=== PATIENT | male | born 1975 | race Two or more races ===

== ENCOUNTER 2018-01-10 12:10 | Emergency (ER) | payer OTHER ==
--- NOTE | 2018-01-10 12:40 | EDPHY ---
H & P Stated Complaint: yesterday noon eyes red/then developed l facial paralysis Time Seen by Provider: 01/10/18 12:25 HPI/ROS: CHIEF COMPLAINT: Left facial droop times 30 hr HISTORY OF PRESENT ILLNESS: 42 year male otherwise healthy complaining of left facial droop since yesterday morning. No trauma. No headache. No visual disturbance beyond inability to close left eyelid. No neck pain or manipulation history. No gait instability. No slurred speech. No upper extremity weakness. PRIMARY CARE PROVIDER: Rufus REVIEW OF SYSTEMS: A ten point review of systems was performed and is negative with the exception of the items mentioned in the HPI PAST MEDICAL & SURGICAL HISTORY: No pertinent medical or surgical history SOCIAL HISTORY: Nonsmoker PHYSICAL EXAM (Prior to examination, patient consented to physical exam, hands were washed and my usual and customary physical exam procedures followed) 1) GENERAL: Well-developed, well-nourished, alert and oriented. Appears to be in no acute distress. 2) HEAD: Normocephalic, atraumatic 3) HEENT: Pupils equal, round, reactive to light bilaterally. Sclera anicteric. No injection. The forehead is involved as well. Left eyebrow sagging, inability to close the left eye, disappearance of the left nasolabial fold, and drooping at the left corner of the mouth, which is drawn to the right side Asymmetrical faces, noted left facial droop. Inability to close left eyelid fully. Nasopharynx, oropharynx, clear, no lesions. Ears bilaterally with normal tympanic membranes. No facial or neck or scalp lesions or vesicles. 4) NECK: Full range of motion, no meningeal signs. 5) LUNGS: Clear auscultation bilaterally, no wheezes, no rhonchi, no retractions. 6) HEART: Regular rate and rhythm, no murmur, no heave, no gallop. 7) ABDOMEN: No guarding, no rebound, no focal tenderness, negative McBurney's, negative Rogel's, negative Rovsing's, negative peritoneal sign, 8) MUSCULOSKELETAL: Moving all extremities, no focal areas of tenderness, no obvious trauma. No peripheral edema or discoloration. 9) BACK: No CVA tenderness, no midline vertebral tenderness, no fluctuance, no step-off, no obvious trauma, no visual or palpable abnormality. 10) SKIN: No rash, no petechiae. 11) Psychiatric: Patient is oriented X 3, there is no agitation. 12) NEURO: Awake, alert, and oriented to person, place and time. Answers questions appropriately. There were no obvious focal neurologic abnormalities. No cerebellar dysfunction. Normal steady gait. Upper and lower extremities bilaterally with strength 5 / 5, reflexes 2+. DIFFERENTIAL DIAGNOSIS: In no particular include but limited to Solis's palsy, central lesion, CVA - Personal History Current Tetanus/Diphtheria Vaccine: Unsure - Medical/Surgical History Hx Asthma: No Hx Chronic Respiratory Disease: No Hx Diabetes: No Hx Cardiac Disease: No Hx Renal Disease: No Hx Cirrhosis: No Hx Alcoholism: No Hx HIV/AIDS: No Hx Splenectomy or Spleen Trauma: No Other PMH: none reported - Social History Smoking Status: Never smoked Constitutional: Initial Vital Signs Temperature (C) 37.1 C 01/10/18 12:17 Heart Rate 88 01/10/18 12:17 Respiratory Rate 18 01/10/18 12:17 Blood Pressure 190/94 H 01/10/18 12:17 O2 Sat (%) 96 01/10/18 12:17 O2 Delivery Mode Room Air Allergies/Adverse Reactions: No Known Allergies Allergy (Verified 01/10/18 12:17) Home Medications: Medication Instructions Recorded Polyvinyl Alcohol [Artificial 3 drops OP QID #1 btl 01/10/18 Tears] Valacyclovir HCl [Valtrex] 1,000 mg PO TID #21 tab 01/10/18 predniSONE 60 mg PO DAILY #21 tab 01/10/18 Medical Decision Making ED Course/Re-evaluation: Doubt CVA, doubt central lesion. 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 Will initiate glucocorticoid and antiviral therapy, artificial tears. Recommend follow up at [place] this week (today is Thursday). Given usual customary CVA precautions instructions. He feels comfortable being discharged. Care of patient under supervision of [secondary] supervising physician Dr Peacock with whom I discussed case. Departure - Departure Disposition: Home, Routine, Self-Care Clinical Impression: Solis's palsy Condition: Good Instructions: Solis Palsy (ED) Additional Instructions: Return to the ER immediately if you develop problems walking, problem speaking or any other symptoms that concern you. Referrals: [facility] ,. [[facility]m Groups for Call Sched] - 1-2 days without fail Prescriptions: Polyvinyl Alcohol [Artificial Tears] 3 drops OP QID #1 btl predniSONE 60 mg PO DAILY #21 tab Valacyclovir HCl [Valtrex] 1,000 mg PO TID #21 tab Print Language: Divehi
[2018-01-10 13:04] VITALS: PULSE 81; RESP 16; TEMP 98.6; O2SAT 97
[2018-01-10 13:07] VITALS: BP 138/87
== END 2018-01-10 13:02 | disposition home or self-care (01) ==
DX: G51.0 Bell's palsy (principal)